=== PATIENT | female | born 1960 | race Caucasian/White ===

== ENCOUNTER 2021-03-23 10:21 | Inpatient (IN) | payer OTHER, SELFPAY ==
[~2021-03-23] VITALS: Ht 162.6 cm; Wt 68.5 kg
--- NOTE | 2021-03-23 10:52 | NUR ---
LOWER ABD PAIN X5 DAYS. GETTING WORSE. PRESSURE FEELING AND FREQUENT URINATION. HX: DIVERTICULITIS. PT CONNECTED TO MONITORING. CALL LIGHT IN REACH.
[2021-03-23] MEDS ORDERED: HYDROmorphone 2 MG/ML, 1ML IV ONE (11:00)
[2021-03-23] MEDS ORDERED: SODIUM CHLORIDE FLUSH 10ML SYR IVF ONE (11:00)
[2021-03-23] MEDS ORDERED: SODIUM CHLORIDE 0.9% 1,000ML IVBOLUS ONE (11:00)
--- NOTE | 2021-03-23 11:05 | NUR ---
PIV PLACED, LABS DRAWN. PT AMBULATED TO RESTROOM WITH STEADY GAIT TO PROVIDE URINE SAMPLE. UA COLLECTED AND SENT TO LAB. SWATCH CUTTER AT BEDSIDE WITH ORAL CONSTRAST.
[2021-03-23] MEDS ORDERED: HYDROmorphone 2 MG/ML, 1ML ONE ×2 (11:18→13:54)
--- NOTE | 2021-03-23 11:24 | NUR ---
MEDS ADMIN PER OCT. IVF RUNNING. PT CONNECTED TO MONITORNG.
[2021-03-23 12:04] LABS: BASOPHILS % (AUTO) 0 % (0-1); EOSINOPHILS % (AUTO) 1 % (1-7); LYMPHOCYTES % (AUTO) 22 % (22-44); MEAN CORPUSCULAR HEMOGLOBIN 35.2 pg (27.0-34.8); MEAN CORPUSCULAR HGB CONC 34.8 g/dL (32.4-35.8); MEAN PLATELET VOLUME 8.2 fL (7.4-10.4); MONOCYTES % (AUTO) 6 % (2-9); NEUTROPHILS % (AUTO) 71 % (42-75); PLATELET COUNT 221 x10^3/uL (130-400); RED BLOOD COUNT 3.85 x10^6/uL (3.82-5.3); RED CELL DISTRIBUTION WIDTH 12.6 % (9.6-15.2)
[2021-03-23 12:15] LABS: ALANINE AMINOTRANSFERASE 27 U/L (12-78); ALBUMIN 3.6 g/dL (3.4-5.0); ANION GAP 7 mmol/L (5-15); CALCIUM 9.5 mg/dL (8.5-10.1); CHLORIDE 105 mmol/L (98-107)
[2021-03-23 12:18] LABS: ALKALINE PHOSPHATASE 92 U/L (45-117); BILIRUBIN,TOTAL 0.3 mg/dL (0.2-1.0); CREATININE 0.85 mg/dL (0.55-1.02); TOTAL PROTEIN 6.7 g/dL (6.4-8.2)
[2021-03-23 12:22] LABS: MICROSCOPIC NOT IND
--- NOTE | 2021-03-23 12:29 | NUR ---
PT STATES PAIN MEDS "TOOK THE EDGE OFF"
--- NOTE | 2021-03-23 13:43 | NUR ---
ALL RESULTS ARE BACK AT THIS TIME. CHART UP FOR RECHECK.
--- NOTE | 2021-03-23 13:52 | NUR ---
ERMD AT BEDSIDE TO UPDATE PT ON POC. PT TO BE ADMIT
[2021-03-23] MEDS ORDERED: METRONIDAZOLE PMX 500MG/100ML 100 ML ONE (13:53)
[2021-03-23] MEDS ORDERED: CEFTRIAXONE 1,000 MG in DEXTROSE 5% 50 ML IVPB ONE (14:00)
[2021-03-23] MEDS ORDERED: HYDROmorphone 1 MG/ML, 1ML INJ IV ONE (14:00)
[2021-03-23] MEDS ORDERED: METRONIDAZOLE PMX 500MG/100ML 100 ML IVPB ONE (14:00)
--- NOTE | 2021-03-23 14:02 | NUR ---
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 IV ABX STARTED PER OCT. PER JOSE ANTONIO JI, NO NEED FOR BLOOD CX AT THIS TIME.
[2021-03-23] MEDS ORDERED: PROMETHAZINE 25 MG/ML, 1ML IM PRN (14:30)
[2021-03-23] MEDS ORDERED: ENALAPRILAT 1.25 MG/ML, 2ML IVPush PRN (14:30)
[2021-03-23] MEDS ORDERED: ACETAMINOPHEN 325 MG TABLET PO PRN (14:30)
[2021-03-23] MEDS ORDERED: DIPHENHYDRAMINE 25 MG CAPSULE PO PRN (14:30)
[2021-03-23] MEDS ORDERED: ONDANSETRON ODT 4 MG PO PRN (14:30)
[2021-03-23] MEDS ORDERED: ONDANSETRON 2MG/ML, 2ML IVPush PRN (14:30)
[2021-03-23] MEDS ORDERED: hydrALAzine 20 MG/ML, 1ML IVPush PRN (14:30)
[2021-03-23] MEDS ORDERED: MORPHINE SULFATE 4 MG/ML, 1ML ONE (14:42)
[2021-03-23] MEDS: morphine SULFATE 10 MG/ML, 1ML IVPush PRN ×3 (14:44→22:36)
--- NOTE | 2021-03-23 14:53 | NUR ---
report received from Letha MARTINEZ, assuming care of pt at this time
--- NOTE | 2021-03-23 14:53 | NUR ---
PER PT REQUEST, PT BOYFRIEND HAFSA UPDATED ON PT POC AND BEING ADMITTED. PT FORGOT CELL PHONE AT HOME. HAFSA [phone]
--- NOTE | 2021-03-23 16:00 | NUR ---
report called to Sherrie MARTINEZ
[2021-03-23] MEDS ORDERED: DULO20CA45 PO (17:22)
[2021-03-23] MEDS ORDERED: ESTR1POW13 PO (17:22)
[2021-03-23] MEDS: SODIUM CHLORIDE 0.9% 1,000 ML IV SCH (17:30)
[2021-03-23] MEDS: KETOROLAC 30 MG/1 ML IV PRN (17:30)
[2021-03-23] MEDS: HYDROcodone/APAP 5/325 TABLET PO PRN ×2 (17:34→20:45)
[2021-03-23] MEDS: METRONIDAZOLE PMX 500MG/100ML 100 ML IV SCH (18:30)
[2021-03-23 20:20] VITALS: BP 130/83
[2021-03-23] MEDS: VANCOMYCIN 50 MG/ML ORAL SUSP PO SCH (21:06)
[2021-03-24] MEDS: HYDROcodone/APAP 5/325 TABLET PO PRN ×2 (00:53→06:38)
[2021-03-24] MEDS: KETOROLAC 30 MG/1 ML IV PRN (00:54)
[2021-03-24 02:35] VITALS: BP 129/78
[2021-03-24] MEDS: SODIUM CHLORIDE 0.9% 1,000 ML IV SCH ×4 (02:50→19:01)
[2021-03-24] MEDS: METRONIDAZOLE PMX 500MG/100ML 100 ML IV SCH (02:50)
[2021-03-24] MEDS: morphine SULFATE 10 MG/ML, 1ML IVPush PRN ×2 (04:57→09:57)
[2021-03-24 05:34] LABS: BASOPHILS % (AUTO) 1 % (0-1); EOSINOPHILS % (AUTO) 2 % (1-7); LYMPHOCYTES % (AUTO) 41 % (22-44); MEAN CORPUSCULAR HEMOGLOBIN 35.3 pg (27.0-34.8); MEAN CORPUSCULAR HGB CONC 34.7 g/dL (32.4-35.8); MEAN PLATELET VOLUME 7.6 fL (7.4-10.4); MONOCYTES % (AUTO) 7 % (2-9); NEUTROPHILS % (AUTO) 49 % (42-75); PLATELET COUNT 178 x10^3/uL (130-400); RED BLOOD COUNT 3.45 x10^6/uL (3.82-5.3); RED CELL DISTRIBUTION WIDTH 12.6 % (9.6-15.2)
[2021-03-24 05:43] LABS: ANION GAP 5 mmol/L (5-15); CALCIUM 7.7 mg/dL (8.5-10.1); CHLORIDE 110 mmol/L (98-107)
[2021-03-24 05:46] LABS: CREATININE 0.65 mg/dL (0.55-1.02)
[2021-03-24 07:04] VITALS: BP 132/90
[2021-03-24] MEDS: LACTOBACILLUS CHEW TABLET PO SCH ×3 (09:00→21:00)
[2021-03-24] MEDS: SENNA/DOCUSATE TABLET PO SCH (09:56)
[2021-03-24] MEDS: VANCOMYCIN 50 MG/ML ORAL SUSP PO SCH ×2 (09:58→21:00)
[2021-03-24] MEDS: PIPERACILLIN/TAZO 3.375 GM in DEXTROSE 5% 50 ML IV SCH ×2 (11:53→17:35)
[2021-03-24] MEDS: CALCIUM CITRATE 950 MG TABLET PO SCH (12:30)
[2021-03-24 13:42] VITALS: BP 117/75
[2021-03-24] MEDS ORDERED: CEFTRIAXONE 1,000 MG in DEXTROSE 5% 50 ML IVPB SCH (14:00)
[2021-03-24 21:24] VITALS: BP 120/61
[2021-03-25] MEDS: PIPERACILLIN/TAZO 3.375 GM in DEXTROSE 5% 50 ML IV SCH ×5 (00:03→23:42)
[2021-03-25] MEDS: SODIUM CHLORIDE 0.9% 1,000 ML IV SCH ×3 (01:41→21:42)
[2021-03-25 01:43] VITALS: BP 108/68
[2021-03-25 05:19] LABS: BASOPHILS % (AUTO) 1 % (0-1); EOSINOPHILS % (AUTO) 2 % (1-7); LYMPHOCYTES % (AUTO) 31 % (22-44); MEAN CORPUSCULAR HEMOGLOBIN 35.7 pg (27.0-34.8); MEAN CORPUSCULAR HGB CONC 35.1 g/dL (32.4-35.8); MEAN PLATELET VOLUME 7.7 fL (7.4-10.4); MONOCYTES % (AUTO) 8 % (2-9); NEUTROPHILS % (AUTO) 59 % (42-75); PLATELET COUNT 182 x10^3/uL (130-400); RED BLOOD COUNT 3.52 x10^6/uL (3.82-5.3); RED CELL DISTRIBUTION WIDTH 12.3 % (9.6-15.2)
[2021-03-25 05:30] LABS: ANION GAP 5 mmol/L (5-15); CHLORIDE 111 mmol/L (98-107)
[2021-03-25 07:35] VITALS: BP 122/80
[2021-03-25] MEDS: KETOROLAC 30 MG/1 ML IV PRN (08:59)
[2021-03-25] MEDS: CALCIUM CITRATE 950 MG TABLET PO SCH (09:00)
[2021-03-25] MEDS: VANCOMYCIN 50 MG/ML ORAL SUSP PO SCH ×2 (09:00→20:59)
[2021-03-25] MEDS: SENNA/DOCUSATE TABLET PO SCH (09:00)
[2021-03-25] MEDS: LACTOBACILLUS CHEW TABLET PO SCH ×3 (09:01→20:59)
[2021-03-25] MEDS: HYDROcodone/APAP 5/325 TABLET PO PRN ×2 (11:26→17:23)
[2021-03-25 13:25] VITALS: BP 114/69
[2021-03-25 19:31] VITALS: BP 112/73
[2021-03-25] MEDS: DULOXETINE 20 MG CAPSULE.DR PO SCH (20:59)
[2021-03-26 03:29] VITALS: BP 125/85
[2021-03-26] MEDS: SODIUM CHLORIDE 0.9% 1,000 ML IV SCH ×2 (04:28→10:20)
[2021-03-26] MEDS: PIPERACILLIN/TAZO 3.375 GM in DEXTROSE 5% 50 ML IV SCH ×2 (05:49→12:34)
[2021-03-26 07:27] VITALS: BP 138/92
[2021-03-26] MEDS: LACTOBACILLUS CHEW TABLET PO SCH ×2 (08:34→16:00)
[2021-03-26] MEDS: DULOXETINE 20 MG CAPSULE.DR PO SCH (08:34)
[2021-03-26] MEDS: VANCOMYCIN 50 MG/ML ORAL SUSP PO SCH (08:35)
[2021-03-26] MEDS: SENNA/DOCUSATE TABLET PO SCH (08:35)
[2021-03-26] MEDS: CALCIUM CITRATE 950 MG TABLET PO SCH (08:35)
[2021-03-26] MEDS ORDERED: ESTRADIOL 1 MG TABLET PO SCH (09:00)
[2021-03-26] MEDS ORDERED: SENN-211 PO (12:55)
[2021-03-26] MEDS ORDERED: VANC1VIA36 PO (12:55)
[2021-03-26] MEDS ORDERED: CIPR500T4 PO (12:55)
[2021-03-26] MEDS ORDERED: METR-90 PO (12:55)
[2021-03-26] MEDS ORDERED: ACID1TAB7 PO (12:55)
[2021-03-26 14:43] VITALS: BP 124/85
== END 2021-03-26 16:10 | disposition home or self-care (01) | DRG 391 ==
LOC: SUATTDRO 14:11 → ED 14:20 → EDIP 14:53 → 4NE 16:46
PROVIDERS: ADMIT Hospitalist; ATTEND Internal Medicine
DX: K57.32 Diverticulitis of large intestine without perforation or abscess without bleeding (principal); K65.9 Peritonitis, unspecified; K52.9 Noninfective gastroenteritis and colitis, unspecified; Z86.19 Personal history of other infectious and parasitic diseases; Z90.710 Acquired absence of both cervix and uterus; Z88.2 Allergy status to sulfonamides
CPT/HCPCS: 36415; 96365; 96375; 96376; 99285; J3370; 74177; 80048; 80053; 81003; 83605; 83690; 83735; 84100; 85025; 93005; G0378; J0696; J1170; J1885; J2405; J2543; J2550; J2270; J7030